=== PATIENT | male | born 1975 | race Hispanic/Latino ===

== ENCOUNTER 2020-06-14 16:52 | Emergency (ER) | payer OTHER ==
[2020-06-14] MEDS ORDERED: HYDROCODONE/ACETAMINOPHEN 10/325 MG TAB ONE (17:19)
[2020-06-14] MEDS ORDERED: CEPHALEXIN 500 MG CAPSULE ONE (17:19)
[2020-06-14] MEDS ORDERED: TETANUS/DIPHTHERIA TOXOID [ADULT] 0.5 ML VIAL IM ONE (17:20)
== END 2020-06-14 18:00 | disposition home or self-care (01) ==
LOC: EDH 16:52
DX: S61.411A Laceration without foreign body of right hand, initial encounter (principal); X58.XXXA Exposure to other specified factors, initial encounter; Y93.89 Activity, other specified; Y92.89 Other specified places as the place of occurrence of the external cause; Y99.8 Other external cause status
CPT/HCPCS: 12002; 73130; 90471; 90714

== ENCOUNTER 2020-06-22 09:57 | Emergency (ER) | payer SELFPAY | END 2020-06-22 11:29 | disposition home or self-care (01) | LOC: EDH 09:57 | DX: S61.412D Laceration without foreign body of left hand, subsequent encounter (principal); I10 Essential (primary) hypertension; Z90.49 Acquired absence of other specified parts of digestive tract; X58.XXXD Exposure to other specified factors, subsequent encounter | CPT/HCPCS: 99281 ==